=== PATIENT | female | born 1985 | race Hispanic/Latino ===

== ENCOUNTER 2023-12-18 07:40 | Emergency (ER) | payer SELFPAY ==
[2023-12-18] MEDS ORDERED: Ibuprofen 200 MG TAB ONE (08:06)
== END 2023-12-18 08:07 | disposition home or self-care (01) ==
LOC: CSHERS 07:40
DX: G56.03 Carpal tunnel syndrome, bilateral upper limbs (principal)
CPT/HCPCS: 99283